=== PATIENT | male | born 1940 | race Caucasian/White ===

== ENCOUNTER 2017-07-04 16:16 | Emergency (ER) | payer SELFPAY ==
[~2017-07-04 16:16] MED LIST: ALBUTEROL0.09 MG/A1 INH; AMLODIPINE BESYL5 M1 PO; ATORVASTATIN CA40 M1 PO; COREG6.25 M1 PO; GLIPIZIDE5 M2 PO; HYDRALAZINE HCL25 M1 PO; LISINOPRIL10 M1 PO; METFORMIN HCL1000 M1 PO; TESSALON PERLE100 MG PO; TYLENOL WITH C1 EACH PO; VOLTAREN100 GM TOP; ZITHROMAX Z-PA250 M1 PO
--- NOTE | 2017-07-04 16:35 | ED GENERAL ADULT ---
See Addendum History of Present Illness General Chief Complaint: Facial or Head Injury Stated Complaint: HEAD INJURY Source: patient, family Exam Limitations: no limitations Vital Signs & Intake/Output Vital Signs & Intake/Output Vital Signs Date Time Temp Pulse Resp B/P B/P Pulse O2 O2 Flow FiO2 Mean Ox Delivery Rate 07/04 1647 9.5 74 16 150/79 97 Room Air Allergies Coded Allergies: NO KNOWN ALLERGIES (04/20/12) Reconcile Medications Amlodipine Besylate 5 MG TABLET 1 TAB PO QPM HEART (Reported) Atorvastatin Calcium 40 MG TABLET 1 TAB PO QPM CHOLESTEROL (Reported) Carvedilol (Coreg) 6.25 MG TABLET 1 TAB PO BID HEART (Reported) Diclofenac Sodium (Voltaren) 1 % GEL..GRAM. 1 GM TOP 4 TIMES/DAY PRN pain apply to affected area(s) Glipizide 5 MG TABLET 1 TAB PO BID DIABETES (Reported) Hydralazine HCl 25 MG TABLET 1 TAB PO Q8 HEART (Reported) Lisinopril 10 MG TABLET 1 TAB PO DAILY HEART (Reported) Metformin HCl 1,000 MG TABLET 1 TAB PO BID DIABETES (Reported) Tylenol With Codeine (Tylenol With Codeine #3 Tablet) 300 MG-30 MG TABLET 1 TAB PO TIDP PRN pain Triage Nurses Notes Reviewed? yes Onset: Abrupt Duration: hour(s): Timing: recent history HPI: 07/04/17 4:50 PM 77-year-old man presents to the emergency department for head injury. According to the patient and his they were walking in the hospital lobby and a sign fell off the ceiling and struck him in the head. He denies any loss of consciousness, neck pain or other complaints. He also says that the sign debris hit his watch and it shifted and he has an abrasion to his left wrist. He has a past medical history of intracranial bleeding and TIA. Also hypertension and diabetes. Past History Medical History Any Pertinent Medical History? see below for history Neurological: TIA, hemorrhagic stroke with residual left-sided weakness. 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 No Review of Systems Review of Systems Constitutional: Reports: no symptoms. EENTM: Reports: see HPI. Respiratory: Denies: short of breath. Cardiovascular: Denies: chest pain. GI: Reports: no symptoms. Genitourinary: Reports: no symptoms. Musculoskeletal: Reports: see HPI. Skin: Reports: see HPI. Neurological/Psychological: Denies: headache. Hematologic/Endocrine: Reports: bruising. Immunologic/Allergic: Reports: no symptoms. Physical Exam Physical Exam General Appearance: alert, awake, mild distress Head: evidence of injury Eyes: Bilateral: normal appearance, PERRL, EOMI. Ears, Nose, Throat: normal pharynx, normal ENT inspection Neck: normal inspection, supple, full range of motion, NEXUS CRITERIA NEGATIVE Respiratory: normal breath sounds, chest non-tender, no respiratory distress Cardiovascular: regular rate/rhythm Peripheral Pulses: 4+ radial (R), 4+ radial (L) Gastrointestinal: soft, non-tender Back: normal range of motion Extremities: ABRASION DORSAL LEFT WRIST Neurologic/Psych: no motor/sensory deficits, awake, alert, oriented x 3 Skin: ABRASION LEFT WRIST, ECCHYMOSIS LEFT PARIETAL SCALP Core Measures ACS in differential dx? No CVA/TIA Diagnosis: No Sepsis Present: No Sepsis Focused Exam Completed? No Progress Differential Diagnoses I considered the following diagnoses in my evaluation of the patient: [ Intracranial bleed, fracture, concussion] Plan of Care: Orders Procedure Date/time Status CT HEAD WO IV CONTRAST 07/04 1636 Active Current Medications Sig/Renu Start time Last Medication Dose Stop Time Status Admin Acetaminophen 650 MG ONCE ONE 07/04 1700 AC (Tylenol) 07/04 1701 Initial ED EKG: none Departure Departure Disposition: HOME OR SELF CARE Condition: Stable Clinical Impression Primary Impression: Head injury Secondary Impressions: Abrasion of left wrist, Contusion Referrals: Apple JIMENEZ,Dontrell Grayson (PCP/Family) Departure Forms: Customer Survey General Discharge Information Comments A CT scan of the head without contrast was ordered. The abrasion to the left wrist is superficial and requires no treatment. He has a Band-Aid on it. We'll obtain CT scan of the head assuming this is negative he will follow-up with his physician as needed. The patient was signed out to Eric Scott at 4:55 PM. Critical Care Note Critical Care Note Critical Care Time: non-applicable
--- NOTE | 2017-07-04 17:26 | CT SCAN REPORT ---
EXAMINATION: CT HEAD WITHOUT CONTRAST CLINICAL INFORMATION: Head injury. COMPARISON: Head CT from 04/20/2012 TECHNIQUE: Contiguous axial imaging was performed from the skull base to vertex without intravenous administration of contrast. DLP: 643 mGy-cm FINDINGS: No acute intracranial hemorrhage, extra-axial fluid collection, mass or midline shift. Again noted is patchy and confluent hypoattenuation within the supratentorial white matter consistent with chronic, moderate microangiopathy. Mild atrophy of cerebral hemispheres with commensurate prominence of ventricles and sulci. There is an old, small infarct in deep white matter of the right palmer radiata. The sweeney-white matter differentiation is maintained. No evidence of an acute major vascular territory infarction. The calvarium is intact and the visualized paranasal sinuses, mastoid air cells and middle ear cavities are well aerated. No acute fracture or subluxation at either temporomandibular joint. No acute intraorbital pathology. IMPRESSION: - No acute intracranial findings compared to 04/20/2012. - Chronic mild cerebral atrophy and chronic small vessel ischemic changes of the supratentorial white matter.
[2017-07-04 17:57] VITALS: BP 144/76
== END 2017-07-04 17:59 ==
LOC: ERH 16:16
DX: S09.90XA Unspecified injury of head, initial encounter (principal); S60.812A Abrasion of left wrist, initial encounter; S00.93XA Contusion of unspecified part of head, initial encounter; W20.8XXA Other cause of strike by thrown, projected or falling object, initial encounter; Y92.238 Other place in hospital as the place of occurrence of the external cause; Y93.01 Activity, walking, marching and hiking